=== PATIENT | male | born 1985 | race Two or more races ===

== ENCOUNTER 2023-03-02 15:40 | Outpatient (CLI) | payer OTHER | END 2023-03-02 15:52 | disposition home or self-care (01) | LOC: LAB 15:40 | PROVIDERS: ATTEND Preventive Medicine Occupational Medicine | DX: U07.1 COVID-19 (principal) ==

== ENCOUNTER 2023-05-17 12:16 | Emergency (ER) | payer OTHER ==
[~2023-05-17] VITALS: Ht 170.2 cm; Wt 97.1 kg
[2023-05-17 13:30] LABS: HEMATOCRIT 44.5 % (39.0-48.0); HEMOGLOBIN 15.7 g/dL (13-16.00); MEAN CELL VOLUME 82.6 fL (80.0-100.00); MEAN CORPUSCULAR HEMOGLOBIN 29.2 pg (27.00-32.0); MEAN CORPUSCULAR HGB CONC 35.4 g/dl (32.0-36.0); PLATELET COUNT 260 K/uL (150-450); RED BLOOD COUNT 5.38 M/uL (4.00-6.00); RED CELL DISTRIBUTION WIDTH 13.2 % (11.5-14.5)
[2023-05-17] MEDS ORDERED: TUSNEL LIQUID178 ML PO (14:03)
[2023-05-17] MEDS ORDERED: ZITHROMAX500 MG PO (14:03)
== END 2023-05-17 14:21 | disposition home or self-care (01) ==
LOC: ER 12:16
PROVIDERS: General Practice
DX: B34.9 Viral infection, unspecified (principal); Z20.822 Contact with and (suspected) exposure to COVID-19